=== PATIENT | female | born 1980 | race Caucasian/White ===

== ENCOUNTER → 2021-07-20 | Outpatient (CLI) | payer OTHER ==
[~2021-07-20] MED LIST: CYCLOBENZAPRINE5 MG PO; FLEXERIL; NOHOMEMEDICATIONS; NORCO 5-325 TA1 EACH PO; NORFLEX100 MG PO; TRAMADOL 50 MG50 MG; TRAMADOL 50 MG50 MG PO; ULTRAM 50MG TAB50 MG PO
== END ==
LOC: M.ULTRA 07:24
PROVIDERS: ATTEND Family Medicine
DX: N83.02 Follicular cyst of left ovary (principal); R93.89 Abnormal findings on diagnostic imaging of other specified body structures